=== PATIENT | female | born 1935 | race Caucasian/White ===

== ENCOUNTER 2017-06-16 09:30 | Emergency (ER) | payer MEDICARE ==
[~2017-06-16] VITALS: Ht 162.6 cm; Wt 81.7 kg
[~2017-06-16 09:30] MED LIST: ACEDIPPM; ACYC5TO15G TOP; ACYC800 PO; ALBU90OI INH; AMOCLA875 PO; ANAS1 PO; ASPI81EC; BISO5 PO; CALCIUM PO; CALGLU500; CHOL10002 PO; CLOP75 PO; DULERA 200 MCG/13 GM INH; Dyazide 37.5-21 EACH PO; Epipen0.3 MG/0.3 IM; FLUSAL2505 IH; HYDACE5 PO; HYDCHL12.5; LEVSOD50 PO; LISI5 PO; LORA.5; METO10 PO; METO25ER; OMEP20ER; PROBIOTIC PO; Pepcid20 MG PO; Prednisone20 MG PO; Prilosec Otc20 MG; ROSU5 PO; RXHYDACE PO; SIMV10 PO; STOOL SOFTENER PO; TRIHYD253B PO; UBID100 PO; [UNRECOGNIZED DRUG - OTHER]; [UNRECOGNIZED DRUG - OTHER]
[2017-06-16 10:32] LABS: BASOPHILS ABSOLUTE AUTO 0.04 K/mm3 (0.00-0.23); BASOPHILS PERCENT AUTO 1 % (0-2); EOSINOPHILS ABSOLUTE AUTO 0.21 K/mm3 (0.00-0.68); EOSINOPHILS PERCENT AUTO 3 % (0-6); Hematocrit 44.2 % (33.0-51.0); Hemoglobin 14.4 g/dL (11.5-16.0); IMMATURE GRAN ABSOLUTE AUTO 0.03 K/mm3 (0.00-0.10); IMMATURE GRAN PERCENT AUTO 0 % (0-1); LYMPHOCYTES ABSOLUTE AUTO 1.95 K/mm3 (0.84-5.20); LYMPHOCYTES PERCENT AUTO 26 % (21-46); MONOCYTES ABSOLUTE AUTO 0.58 K/mm3 (0.16-1.47); MONOCYTES PERCENT AUTO 8 % (4-13); Mean Corpuscular HGB 29.7 pg (26.0-34.0); Mean Corpuscular HGB Conc 32.6 g/dL (31.5-36.5); Mean Corpuscular Volume 91 fL (80-100); Mean Platelet Volume 10.1 fL (9.1-12.4); NEUTROPHILS ABSOLUTE AUTO 4.65 K/mm3 (1.96-9.15); NEUTROPHILS PERCENT AUTO 62 % (41-73); Platelet Count 235 K/mm3 (150-400); RDW Coefficient Variation 12.9 % (11.7-14.2); RDW Standard Deviation 42.4 fL (35.1-46.3); Red Blood Cell Count 4.85 M/mm3 (3.80-5.20); White Blood Cell Count 7.46 K/mm3 (4.00-11.30)
[2017-06-16 10:56] LABS: Anion Gap 10 mmol/L (6-16); Blood Urea Nitrogen 17 mg/dL (8-24); Bun/Creatinine Ratio 20.2 (12.0-20.0); CO2, Blood 23 mmol/L (21-32); Calcium, Blood 9.7 mg/dL (8.5-10.1); Chloride, Blood 107 mmol/L (98-108); Creatinine, Blood 0.84 mg/dL (0.40-1.00); Glomerular Filtration Rate >60 (60-); Glucose, Blood 99 mg/dL (70-99); Potassium, Blood 3.5 mmol/L (3.5-5.5); Sodium, Blood 140 mmol/L (136-145)
[2017-06-16 11:04] LABS: Cholesterol 180 mg/dL (50-200); Triglycerides 210 mg/dL (30-160)
[2017-08-22] MEDS ORDERED: KLOR-CON SPRIN10 MEQ PO (13:42)
[2017-08-22] MEDS ORDERED: ALBU90OI INH (13:44)
[2017-08-22] MEDS ORDERED: FLONASE ALLERG9.9 ML (13:47)
[2017-08-22] MEDS ORDERED: VITAMIN D31000 UNIT PO (13:48)
[2017-08-22] MEDS ORDERED: QVAR REDIHALE10.6 G1 (13:49)
[2017-08-22] MEDS ORDERED: VOLTAREN 1% (13:52)
[2017-08-22] MEDS ORDERED: CYCL10 PO (13:55)
[2017-09-19] MEDS ORDERED: Ventolin/Prove6.7 GM INH (16:38)
[2017-09-19] MEDS ORDERED: Bisoprolol Fumar5 MG PO (16:38)
== END 2017-06-16 11:55 | disposition home or self-care (01) ==
LOC: ER 09:30
PROVIDERS: Emergency Medicine
DX: G45.9 Transient cerebral ischemic attack, unspecified (principal); J32.9 Chronic sinusitis, unspecified; I10 Essential (primary) hypertension; E78.5 Hyperlipidemia, unspecified; Z91.018 Allergy to other foods; Z91.013 Allergy to seafood; Z88.8 Allergy status to other drugs, medicaments and biological substances; Z79.899 Other long term (current) drug therapy
CPT/HCPCS: 36415; 70450; 80048; 82465; 84478; 85025; 99284

== ENCOUNTER 2017-08-25 07:39 | Day surgery (SDC) | payer MEDICARE ==
[~2017-08-25] VITALS: Ht 165.1 cm; Wt 80.0 kg
[~2017-08-25 07:39] MED LIST changes: +CYCL10 PO; +FLONASE ALLERG9.9 ML; +KLOR-CON SPRIN10 MEQ PO; +QVAR REDIHALE10.6 G1; +VITAMIN D31000 UNIT PO; +VOLTAREN 1%
[2017-08-26] MEDS ORDERED: CEPH500 PO (10:36)
== END 2017-08-26 11:12 | disposition home or self-care (01) ==
LOC: MHTC 07:39 → PCU 10:43 → MHTC 08-26 11:12
PROC: 02HL3JZ Insertion of Pacemaker Lead into Left Ventricle, Percutaneous Approach (ICD-10-PCS; principal; 2017-08-25)
PROC: 02HK3JZ Insertion of Pacemaker Lead into Right Ventricle, Percutaneous Approach (ICD-10-PCS; principal; 2017-08-25)
PROC: 0JH606Z Insertion of Pacemaker, Dual Chamber into Chest Subcutaneous Tissue and Fascia, Open Approach (ICD-10-PCS; principal; 2017-08-25)
DX: I44.1 Atrioventricular block, second degree (principal); R00.1 Bradycardia, unspecified; I45.9 Conduction disorder, unspecified; I10 Essential (primary) hypertension; E78.5 Hyperlipidemia, unspecified; E03.9 Hypothyroidism, unspecified; Z87.891 Personal history of nicotine dependence; Z86.73 Personal history of transient ischemic attack (TIA), and cerebral infarction without residual deficits
CPT/HCPCS: 33208; 71045; 93005; 93010; 94760; 99152; 99153; C1785; C1898; J0690; J2250; J2270; J2405; J7030; J7040; J7042; Q9967

== ENCOUNTER 2018-03-28 04:53 | Inpatient (IN) | payer MEDICARE, SELFPAY ==
[~2018-03-28] VITALS: Ht 165.1 cm; Wt 83.1 kg
[~2018-03-28 04:53] MED LIST changes: +Bisoprolol Fumar5 MG PO; +CEPH500 PO; +LORA.5 PO; -Prilosec Otc20 MG; +Prilosec Otc20 MG PO; +Ventolin/Prove6.7 GM INH
[2018-03-28 05:54] LABS: BASOPHILS ABSOLUTE AUTO 0.06 K/mm3 (0.00-0.23); BASOPHILS PERCENT AUTO 1 % (0-2); EOSINOPHILS ABSOLUTE AUTO 0.16 K/mm3 (0.00-0.68); EOSINOPHILS PERCENT AUTO 2 % (0-6); Hematocrit 48.8 % (33.0-51.0); Hemoglobin 15.8 g/dL (11.5-16.0); IMMATURE GRAN ABSOLUTE AUTO 0.08 K/mm3 (0.00-0.10); IMMATURE GRAN PERCENT AUTO 1 % (0-1); LYMPHOCYTES ABSOLUTE AUTO 2.18 K/mm3 (0.84-5.20); LYMPHOCYTES PERCENT AUTO 22 % (21-46); MONOCYTES ABSOLUTE AUTO 0.75 K/mm3 (0.16-1.47); MONOCYTES PERCENT AUTO 8 % (4-13); Mean Corpuscular HGB 29.4 pg (26.0-34.0); Mean Corpuscular HGB Conc 32.4 g/dL (31.5-36.5); Mean Corpuscular Volume 91 fL (80-100); Mean Platelet Volume 9.8 fL (9.1-12.4); NEUTROPHILS ABSOLUTE AUTO 6.49 K/mm3 (1.96-9.15); NEUTROPHILS PERCENT AUTO 67 % (41-73); Platelet Count 193 K/mm3 (150-400); RDW Coefficient Variation 13.1 % (11.7-14.2); RDW Standard Deviation 43.5 fL (35.1-46.3); Red Blood Cell Count 5.37 M/mm3 (3.80-5.20); White Blood Cell Count 9.72 K/mm3 (4.00-11.30)
[2018-03-28 06:17] LABS: Albumin, Blood 3.9 g/dL (3.4-5.0); Albumin/Globulin Ratio 1.1 (0.8-1.8); Bilirubin, Total 0.6 mg/dL (0.1-1.0); Bun/Creatinine Ratio 18.1 (12.0-20.0); Calcium, Blood 10.3 mg/dL (8.5-10.1); Globulin, Blood 3.7 g/dL (2.2-4.0); Potassium, Blood 3.4 mmol/L (3.5-5.5); Total Protein, Blood 7.6 g/dL (6.4-8.2); Troponin I 0.206 ng/mL (0.000-0.040)
[2018-03-28] MEDS ORDERED: Advair Hfa 230-12 GM (06:48)
[2018-03-28] MEDS ORDERED: FLUT1DIS5 INH (16:17)
--- NOTE | 2018-03-28 17:44 | NUR ---
SHIFT SUMMARY 1525 PT RECEIVED FROM ER. ALERT AND ORIENTED X3 WITH SOME FORGETFULNESS. DENIES PAIN THROUGHOUT THE SHIFT. LUNG SOUNDS CLEAR THROUGHOUT, HEART TONES REGULAR SINUS TACHYCARDIA RATE 100s PER TELE. NON-PITTING EDEMA NOTED TO BLE. FAMILY AT BEDSIDE THROUGHOUT THE DAY. PER RT, PT's HOME RESCUE INHALER AND ADVAIR ARE , IN NEED OF A NEW PRESCRIPTION ON DISCHARGE. WILL CONTINUE TO MONITOR.
--- NOTE | 2018-03-29 05:22 | NUR ---
SHIFT SUMMARY: PATIENT WOKE APPROX 0400 FEELING NAUSEATED AND ACHY, OXYMIZER WAS NOT IN NARES. REPOSITIONED OXYMIZER AND GAVE ANTI NAUSEA MEDICATION, PATIENT SLEPT SHORTLY AFTER. PATIENT DOES NOT WANT ANY VISITORS OTHER THAN DAUGHTER, GRANDAUGHTER AND GRANDSON IN ROOM. SEE RN NOTE PLACED ON DOOR. VSS, CALL LIGHT WITHIN REACH, BED LOW AND LOCKED.
--- NOTE | 2018-03-29 18:09 | NUR ---
SHIFT SUMMARY PT RESTING IN BED THROUGHOUT THE DAY. VSS. ALERT AND ORIENTED X3. DENIES PAIN THROUGHOUT THE DAY. LUNG SOUNDS CLEAR, DYSPNEA WITH EXERTION. SATURATIONS LOW TO MID 90s ON OXYMIZER 5-7 L. PT AMBULATING WITH STANDBY ASSIST TO BATHROOM. FAMILY AT BEDSIDE THE MAJORITY OF THE DAY. WILL CONTINUE TO MONITOR.
--- NOTE | 2018-03-30 05:04 | NUR ---
SHIFT SUMMARY: PATIENT TITRATED DOWN TO 3L O2 WITH SATURATION AT 93 TO 95%. NO OTHER ISSUES NOTED, VSS, CALL LIGHT WITHIN REACH, BED LOW AND LOCKED WITH EXIT ALARM ON.
--- NOTE | 2018-03-30 18:12 | NUR ---
SHIFT SUMMARY PT RESTING IN BED THROUGHOUT THE DAY. VSS. ALERT AND ORIENTED X3. DENIES PAIN THIS AM, C/O SOME PAIN TO LEG WITH MOVEMENT, DENIES NEED FOR PAIN MEDS TODAY. LUNG SOUNDS CLEAR, NSR RATE 76 PER TELE. NON-PITTING EDEMA TO BLE. FAMILY AT BEDSIDE OFF AND ON TODAY. FAMILY HAD ASKED ABOUT USING XARELTO OR ELIQUIS INSTEAD OF COUMADIN D/T PT LIVING FAR OUT OF TOWN, DR. VANG NOTIFIED, COUMADIN TO CONTINUE AT THIS TIME. PT IS AGREEABLE TO TAKING COUMADIN AT THIS TIME. WILL CONTINUE TO MONITOR.
[2018-03-31 04:19] LABS: International Normalized Ratio 0.97
--- NOTE | 2018-03-31 06:20 | NUR ---
SHIFT SUMMARY- PT HAS REMAINED AOX4 THROUGHOUT SHIFT. VSS. PLEASANT AND COOPERATIVE WITH CARE. OXYGEN TITRATED DOWN TO 1L VIA NASAL CANNULA AND O2 SATS HAVE REMAINED >90% ON 1L WHILE AT REST, BUT REQUIRES SLIGHT INCREASE TO 2L WITH AMBULATION. PT DOES NOT DISPLAY EXTREME DYSPNEA ON EXERTION, BUT DOES HAVE SLIGHT DECREASE IN O2 SATS TO 88-89%. CONTINUES TO AMBULATE WITH STANDBY ASSIST WITHOUT DIFFICULTY. PT RESTED WELL THROUGHOUT MUCH OF THE NIGHT. NO OTHER CHANGES NOTED FROM INITIAL ASSESSMENT. WILL CONTINUE TO MONITOR AND REPORT TO ONCOMING RN. BED IN LOW POSITION, CALL LIGHT IN REACH.
[2018-03-31 07:19] LABS: Anion Gap 8 mmol/L (6-16); Blood Urea Nitrogen 18 mg/dL (8-24); Bun/Creatinine Ratio 20.1 (12.0-20.0); CO2, Blood 24 mmol/L (21-32); Calcium, Blood 9.7 mg/dL (8.5-10.1); Chloride, Blood 105 mmol/L (98-108); Glomerular Filtration Rate >60 (60-); Glucose, Blood 105 mg/dL (70-99); Potassium, Blood 4.2 mmol/L (3.5-5.5); Sodium, Blood 137 mmol/L (136-145)
--- NOTE | 2018-03-31 14:47 | NUR ---
PT AMBULATES AROUND PCU UNIT ONE TIME. TOLERATES WELL. SATS ON RETURN ARE 94% ON 2 LITERS. TURNED DOWN TO 1 LITER WHILE SHE IS SLEEPING. PT MAINTAINS SATS ABOVE 92% ON 1 LITER DURING REST. DAUGHTER AT BEDSIDE. [facility] ONTINUE TO MONITOR CLOSELY.
--- NOTE | 2018-03-31 17:42 | NUR ---
END OF SHIFT; PT UP TO BATHROOM WITH ONE PERSON ASSIST TODAY. SHE REMAINS ON 1 LITER O2 VIA NASAL CANNULA. PT WALKED WITH HER DAUGHTER AND THIS RN AROUND UNIT TODAY. TOLERATED WELL USED 2 LITERS O2 DURING WALK. RETURNED TO ROOM AND SATS ARE 94% ON 2 LITERS PT IS TURNED TO 1 LITER AFTER COMING BACK TO ROOM. SHE COMPLAINS OF WEAKNESS AND FEELS SLIGHTLY DIZZY WHEN WALKING. CT SCAN WITH CONTRAST DONE THIS AM. LUNGS ARE DIM IN THE LOWER LOBES AT THIS TIME. WILL CONTINUE TO MONITOR THIS PATIENT UNTIL REPORT AND HAND OFF TO NOC SHIFT RN.
--- NOTE | 2018-03-31 23:45 | NUR ---
LATE ENTRY -TRANSFER FROM PCU- PT ARRIVED FROM ROOM PCU2 AT 2044. PT ABLE TO TRANSFER FROM BED TO BED WITH A STANDBY ASSIST. REVIEWED PCU NURSE INITIAL SHIFT ASSESSMENT, NO ACUTE CHANGES NOTED AFTER PT ARRIVED TO MEDICAL FLOOR. VSS, WILL CONTINUE TO MONITOR.
[2018-04-01 05:21] LABS: International Normalized Ratio 1.06; Prothrombin Time Results 10.9 Sec (9.7-11.5)
--- NOTE | 2018-04-01 06:04 | NUR ---
[employer] GR[employer]ER SUMMARY NO ACUTE CHANGES THIS SHIFT. PT AAOX4 AND COOPERATIVE WITH CARE. PT TRANSFERED TO THE MED FLOOR FROM PCU AT 2044. PT STANDBY ASSIST WITH AMBULATION. LUNG SOUNDS CLEAR BUT DIM IN BASES, PT REMAINS ON 1L O2 VIA NC. BED ALARM ON DUE TO PT NO ALWAYS CALLING FOR ASSISTANCE. CAN BE UNSTEADY AT TIMES. VSS, WILL CONTINUE TO MONITOR.
--- NOTE | 2018-04-01 16:39 | NUR ---
SHIFT SUMMARY PT HAS REFUSED TO GET OUT OF BED TODAY ASIDE FROM GOING TO THE BATHROOM. WILL CONTINUE TO ENCOURAGE THE PT TO GET OUT OF BED AND UP INTO CHAIR. PT USED NO OXYGEN THE MAJORITY OF THE DAY. AT 1400 TO PT EXPEREINCED SLIGHT CONFUSED. O2 SATS WERE 88-90 AT THIS TIME. PT WAS PLACED ON 1L O2 VIA NC. PT IS NOW TITRATED BACK DOWN TO 0.5L. PT HAS BEEN IND IN ROOM GOING TO THE BATHROOM WHEN NEEDED. NO OTHER CHANGES IN ASSESSMENT. PT IS A POSSIBLE DISCHARGE FOR TOMORROW. DR. VANG WILL BE STARTING THE PT ON XARELTO [facility]. VSS. WILL CONTINUE TO MONITOR UNTIL TURNOVER IS COMPLETE.
--- NOTE | 2018-04-02 04:19 | NUR ---
SHIFT SUMMARY TITRATED PT OFF OF O2 THIS EVENING AT START OF SHIFT. O2 SATS THIS AM REMAINED STABLE AT 92% ON RA. PT DENIES SOB AND APPEARS TO BE IN NO RESPIRATORY DISTRESS. LUNG SOUNDS DIM BUT CLEAR. PT SLEPT WELL SLEEPING THROUGH MUCH OF THE NIGHT. REPORTED HIP PAIN W/ AMBULATION BUT OTHERWISE DENIED DISCOMFORT AND DENIED ANY NEED FOR PAIN MEDICATION. OTHERWISE NO ACUTE CHANGES. VSS. WILL CONTINUE TO MONITOR AND REPORT TO DAY RN.
[2018-04-02 05:42] LABS: International Normalized Ratio 1.44; Prothrombin Time Results 14.5 Sec (9.7-11.5)
[2018-04-02] MEDS ORDERED: ACET325 PO (12:50)
[2018-04-02] MEDS ORDERED: Potassium Chlo10 ME2 PO (12:51)
[2018-04-02] MEDS ORDERED: XARELTO15 MG PO (12:51)
--- NOTE | 2018-04-02 13:24 | NUR ---
DISCHARGE SUMMARY RAEANN LEFT WITH HER DAUGHTER VIA WC. PIV REMOVED, PAPERWORK REVIEWED, ALL XARELTO SAMPLES GIVEN TO HER (15MG CAPS TO BE TAKEN BID) AND PRESCRIPTION FAXED TO FOR 20MG CAPS TO BE TAKEN AFTER 15MG CAPS GONE. DIRECTIONS EXPLAINED THOROUGHLY TO PT AND HER DAUGHTER. PT HAS BEEN SBA TO BR, ENDORSES FEELING 'DOWN' DUE TO OTHER DAUGHTERS RECENT . WILL F/U WITH DR VANG ON FRIDAY AT 0900
== END 2018-04-02 13:27 | disposition home or self-care (01) | DRG 175 ==
LOC: DELPENDDIS → ER 04:53 → ERHOLD 04:54 → PCU 15:10 → MEDS 03-31 20:45 → ENPENDDIS 04-01 00:49 → MEDS 04-02 13:27
PROVIDERS: Emergency Medicine; Internal Medicine; ADMIT Internal Medicine
DX: I26.92 Saddle embolus of pulmonary artery without acute cor pulmonale (principal); J96.01 Acute respiratory failure with hypoxia; F32.9 Major depressive disorder, single episode, unspecified; I10 Essential (primary) hypertension; E78.5 Hyperlipidemia, unspecified; E03.9 Hypothyroidism, unspecified; K21.9 Gastro-esophageal reflux disease without esophagitis; F41.9 Anxiety disorder, unspecified; J45.909 Unspecified asthma, uncomplicated; Z66 Do not resuscitate; Z95.0 Presence of cardiac pacemaker; Z85.3 Personal history of malignant neoplasm of breast; Z92.3 Personal history of irradiation; Z87.891 Personal history of nicotine dependence; Z91.013 Allergy to seafood; Z88.7 Allergy status to serum and vaccine; Z88.8 Allergy status to other drugs, medicaments and biological substances; Z91.018 Allergy to other foods; Z79.02 Long term (current) use of antithrombotics/antiplatelets; Z79.51 Long term (current) use of inhaled steroids; Z79.899 Other long term (current) drug therapy; I69.998 Other sequelae following unspecified cerebrovascular disease; R20.8 Other disturbances of skin sensation
CPT/HCPCS: 36415; 71045; 71260; 74177; 80048; 80053; 82947; 84484; 85025; 85610; 93005; 93010; 93308; 93321; 93970; 94640; 94644; 94760; 99285-25; G0378; J1650; J2405; J7030; J7060; Q9967

== ENCOUNTER 2018-06-15 13:58 | Emergency (ER) | payer MEDICARE, SELFPAY ==
[~2018-06-15] VITALS: Ht 165.1 cm; Wt 81.7 kg
[~2018-06-15 13:58] MED LIST changes: +ACET325 PO; +Advair Hfa 230-12 GM; +FLUT1DIS5 INH; +Potassium Chlo10 ME2 PO; +XARELTO15 MG PO
[2018-06-15 14:33] LABS: BASOPHILS ABSOLUTE AUTO 0.05 K/mm3 (0.00-0.23); BASOPHILS PERCENT AUTO 1 % (0-2); EOSINOPHILS ABSOLUTE AUTO 0.15 K/mm3 (0.00-0.68); EOSINOPHILS PERCENT AUTO 2 % (0-6); Hematocrit 45.4 % (33.0-51.0); Hemoglobin 14.4 g/dL (11.5-16.0); IMMATURE GRAN ABSOLUTE AUTO 0.04 K/mm3 (0.00-0.10); IMMATURE GRAN PERCENT AUTO 1 % (0-1); LYMPHOCYTES ABSOLUTE AUTO 1.95 K/mm3 (0.84-5.20); LYMPHOCYTES PERCENT AUTO 28 % (21-46); MONOCYTES ABSOLUTE AUTO 0.51 K/mm3 (0.16-1.47); MONOCYTES PERCENT AUTO 7 % (4-13); Mean Corpuscular HGB 29.9 pg (26.0-34.0); Mean Corpuscular HGB Conc 31.7 g/dL (31.5-36.5); Mean Corpuscular Volume 94 fL (80-100); Mean Platelet Volume 9.9 fL (9.1-12.4); NEUTROPHILS ABSOLUTE AUTO 4.16 K/mm3 (1.96-9.15); NEUTROPHILS PERCENT AUTO 61 % (41-73); Platelet Count 268 K/mm3 (150-400); RDW Coefficient Variation 13.8 % (11.7-14.2); Red Blood Cell Count 4.82 M/mm3 (3.80-5.20); White Blood Cell Count 6.86 K/mm3 (4.00-11.30)
[2018-06-15 14:51] LABS: Albumin, Blood 3.9 g/dL (3.4-5.0); Albumin/Globulin Ratio 1.1 (0.8-1.8); Bilirubin, Total 0.3 mg/dL (0.1-1.0); Calcium, Blood 10.1 mg/dL (8.5-10.1); Creatinine, Blood 0.96 mg/dL (0.40-1.00); Globulin, Blood 3.4 g/dL (2.2-4.0); Potassium, Blood 4.1 mmol/L (3.5-5.5); Total Protein, Blood 7.3 g/dL (6.4-8.2)
[2018-06-15 15:05] LABS: International Normalized Ratio 0.97; Prothrombin Time Results 10.3 Sec (9.7-11.5)
[2018-06-15 16:39] LABS: Bilirubin, Urine Neg (Neg); Blood, Urine Neg (Neg); Glucose Qualitative, Urine Neg (Neg); Ketones, Urine Neg (Neg); Leukocyte Esterase, Urine Neg (Neg); Nitrite, Urine Neg (Neg); Protein, Urine Neg (Neg); Urobilinogen, Urine NORM (Normal)
[2018-06-15 17:02] LABS: Appearance, Urine Clear (Clear); Color, Urine Pale Yellow (P-Yellow)
== END 2018-06-15 17:29 | disposition home or self-care (01) ==
LOC: ER 13:58
PROVIDERS: Physician Assistant
DX: R07.9 Chest pain, unspecified (principal); R55 Syncope and collapse; I10 Essential (primary) hypertension; E78.5 Hyperlipidemia, unspecified; Z79.899 Other long term (current) drug therapy; Z79.02 Long term (current) use of antithrombotics/antiplatelets; Z88.0 Allergy status to penicillin; Z88.8 Allergy status to other drugs, medicaments and biological substances; Z88.6 Allergy status to analgesic agent; Z91.018 Allergy to other foods; Z91.048 Other nonmedicinal substance allergy status; Z91.013 Allergy to seafood; Z86.73 Personal history of transient ischemic attack (TIA), and cerebral infarction without residual deficits; Z86.718 Personal history of other venous thrombosis and embolism
CPT/HCPCS: 36415; 70450; 71046; 80053; 81003; 84484; 85025; 85379; 85610; 93005; 93010; 99285-25

== ENCOUNTER 2018-06-16 23:39 | Emergency (ER) | payer MEDICARE, SELFPAY ==
[~2018-06-16] VITALS: Ht 165.1 cm; Wt 79.4 kg
[2018-06-17 01:29] LABS: BASOPHILS ABSOLUTE AUTO 0.06 K/mm3 (0.00-0.23); BASOPHILS PERCENT AUTO 1 % (0-2); EOSINOPHILS ABSOLUTE AUTO 0.21 K/mm3 (0.00-0.68); EOSINOPHILS PERCENT AUTO 3 % (0-6); Hematocrit 45.1 % (33.0-51.0); Hemoglobin 14.5 g/dL (11.5-16.0); IMMATURE GRAN ABSOLUTE AUTO 0.05 K/mm3 (0.00-0.10); IMMATURE GRAN PERCENT AUTO 1 % (0-1); LYMPHOCYTES ABSOLUTE AUTO 2.89 K/mm3 (0.84-5.20); LYMPHOCYTES PERCENT AUTO 37 % (21-46); MONOCYTES ABSOLUTE AUTO 0.75 K/mm3 (0.16-1.47); MONOCYTES PERCENT AUTO 10 % (4-13); Mean Corpuscular HGB 30.3 pg (26.0-34.0); Mean Corpuscular HGB Conc 32.2 g/dL (31.5-36.5); Mean Corpuscular Volume 94 fL (80-100); NEUTROPHILS PERCENT AUTO 49 % (41-73); Platelet Count 245 K/mm3 (150-400); RDW Coefficient Variation 13.7 % (11.7-14.2); RDW Standard Deviation 47.8 fL (35.1-46.3); Red Blood Cell Count 4.79 M/mm3 (3.80-5.20); White Blood Cell Count 7.76 K/mm3 (4.00-11.30)
[2018-06-17 01:49] LABS: Calcium, Blood 10.2 mg/dL (8.5-10.1); Potassium, Blood 3.7 mmol/L (3.5-5.5)
== END 2018-06-17 03:02 | disposition home or self-care (01) ==
LOC: ER 23:39
PROVIDERS: Emergency Medicine
DX: R00.1 Bradycardia, unspecified (principal); R42 Dizziness and giddiness; Z88.8 Allergy status to other drugs, medicaments and biological substances; Z91.018 Allergy to other foods; Z91.030 Bee allergy status; Z91.013 Allergy to seafood; Z79.899 Other long term (current) drug therapy; I10 Essential (primary) hypertension; Z86.73 Personal history of transient ischemic attack (TIA), and cerebral infarction without residual deficits; E78.5 Hyperlipidemia, unspecified; Z87.891 Personal history of nicotine dependence
CPT/HCPCS: 36415; 80048; 85025; 93005; 93010; 99284-25

== ENCOUNTER 2018-10-14 00:50 | Observation (INO) | payer MEDICARE, SELFPAY ==
[~2018-10-14] VITALS: Ht 165.1 cm; Wt 79.8 kg
[2018-10-14 01:45] LABS: BASOPHILS ABSOLUTE AUTO 0.03 K/mm3 (0.00-0.23); BASOPHILS PERCENT AUTO 0 % (0-2); EOSINOPHILS ABSOLUTE AUTO 0.03 K/mm3 (0.00-0.68); EOSINOPHILS PERCENT AUTO 0 % (0-6); Hematocrit 43.1 % (33.0-51.0); IMMATURE GRAN ABSOLUTE AUTO 0.06 K/mm3 (0.00-0.10); IMMATURE GRAN PERCENT AUTO 1 % (0-1); LYMPHOCYTES ABSOLUTE AUTO 1.05 K/mm3 (0.84-5.20); LYMPHOCYTES PERCENT AUTO 11 % (21-46); MONOCYTES ABSOLUTE AUTO 0.55 K/mm3 (0.16-1.47); MONOCYTES PERCENT AUTO 6 % (4-13); Mean Corpuscular HGB Conc 32.5 g/dL (31.5-36.5); Mean Corpuscular Volume 92 fL (80-100); Mean Platelet Volume 10.1 fL (9.1-12.4); NEUTROPHILS ABSOLUTE AUTO 7.94 K/mm3 (1.96-9.15); NEUTROPHILS PERCENT AUTO 82 % (41-73); Platelet Count 228 K/mm3 (150-400); RDW Coefficient Variation 13.5 % (11.7-14.2); RDW Standard Deviation 46.1 fL (35.1-46.3); Red Blood Cell Count 4.67 M/mm3 (3.80-5.20); White Blood Cell Count 9.66 K/mm3 (4.00-11.30)
[2018-10-14 02:00] LABS: Magnesium, Blood 1.6 mg/dL (1.6-2.4)
[2018-10-14 02:08] LABS: Alanine Aminotransfer (ALT/SGP 28 U/L (12-78); Albumin, Blood 3.7 g/dL (3.4-5.0); Albumin/Globulin Ratio 1.2 (0.8-1.8); Alk Phos 47 U/L (50-136); Anion Gap 8 mmol/L (6-16); Aspartate Aminotrans (AST/SGOT 24 U/L (12-37); Bilirubin, Total 0.5 mg/dL (0.1-1.0); Blood Urea Nitrogen 20 mg/dL (8-24); Bun/Creatinine Ratio 17.7 (12.0-20.0); CO2, Blood 26 mmol/L (21-32); Calcium, Blood 9.8 mg/dL (8.5-10.1); Chloride, Blood 105 mmol/L (98-108); Creatinine, Blood 1.13 mg/dL (0.40-1.00); Glomerular Filtration Rate 49 (60-); Glucose, Blood 164 mg/dL (70-99); Potassium, Blood 3.1 mmol/L (3.5-5.5); Sodium, Blood 139 mmol/L (136-145); Total Protein, Blood 6.7 g/dL (6.4-8.2); Troponin I <0.015 ng/mL (0.000-0.040)
[2018-10-14 02:21] LABS: Source, Urine Clean Catch
[2018-10-14 02:24] LABS: Appearance, Urine Clear (Clear); Bilirubin, Urine Neg (Neg); Blood, Urine Neg (Neg); Color, Urine Yellow (P-Yellow); Glucose Qualitative, Urine Neg (Neg); Ketones, Urine 2+ (Neg); Leukocyte Esterase, Urine 2+ (Neg); Nitrite, Urine Pos (Neg); Protein, Urine Neg (Neg); Urobilinogen, Urine NORM (Normal)
[2018-10-14 02:31] LABS: Bacteria Many /hpf; Red Blood Cells, Urine 0-2 /hpf (0-2); Squamous Epithelial Cells Few /hpf (Few); White Blood Cells, Urine 25-50 /hpf (0-5)
[2018-10-14] MEDS ORDERED: WARF3 (03:22)
--- NOTE | 2018-10-14 05:23 | NUR ---
transfer report from Starr Flowers in ER on PT being admitted with Vertigo and UTI. 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 Await admission
--- NOTE | 2018-10-14 06:36 | NUR ---
83 YEAR OLD fEMALE ADMITTED WITH VERTIGO AND UTI. sHE SAYS SHE WANTS TO HAVE DNR STATUS DUE TO MULTIPLE MEDICAL PROBLEMS AND MEMORY DEFICITS. DTR LEIDY AT BEDSIDE, DTR STAYS WITH PT SINCE REYNA KHAN IN . 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 HAS MULTIPLE ALLERGIES AND MULTIPLE MEDICATIONS. DENIES RECENT FALLS. ABLE TO COMMUNICATE.CONTINUE TO ASSESS.
[2018-10-14 06:43] LABS: International Normalized Ratio 1.94; Prothrombin Time Results 19.4 Sec (9.7-11.5)
--- NOTE | 2018-10-14 18:47 | NUR ---
PATIENT ADMITTED FOR DIZZINESS. MECLIZINE AND VALIUM GIVEN TO TREAT WITH NO RELIEF. PT WORKED WITH PATIENT. UP WITH 1 ASSIST TO BSC. VOIDING USING BSC. PATIENT IS A/OX4 AND COOPERATIVE WITH CARE. SKIN INTACT. 20G TO L AC, D5 1/2 NS INFUSING AT 100ML/HR. TYLENOL GIVEN X1 FOR BEST. PATIENT REPORTS THIS EVENING THAT VERTIGO IS A LITTLE BETTER. ABLE TO TOLERATE LUNCH AND DINNER WITHOUT NAUSEA. K+ REPLACED ORALLY AND 20MEQ GIVEN IV. CALLS APPROPRIATELY FOR ASSISTANCE. VSS, ON RA.
[2018-10-15 05:29] LABS: International Normalized Ratio 2.08; Prothrombin Time Results 20.6 Sec (9.7-11.5)
--- NOTE | 2018-10-15 06:36 | NUR ---
SHIFT SUMMARY PATIENT SLEPT THROUGHOUT NIHT WITH NO ACUTE CHANGES. PATEINT COMPLAINING OF VERTIGO IN AM. MEDICATIONS GIVEN. PRINTED OUT INFORMATION AND SHOWED THE PATIENT THE JEANMARIE MANEUVER. PATIENT STATED THAT THE MANEUVER HELPED HER VERTIGO AND THAT SHE WOULD GIVE THE INFORMATION TO HER DAUGHTER SO THAT SHE MAY CONTINUE TO DO THE MANEUVER AT HOME. PATEINT UP TO [facility].
[2018-10-15] MEDS ORDERED: MOTION RELIEF25 MG PO (18:16)
[2018-10-15] MEDS ORDERED: DIAZ2 PO (18:16)
[2018-10-15] MEDS ORDERED: VENL75ER PO (18:17)
--- NOTE | 2018-10-15 18:38 | NUR ---
REVIEW D'C W/PATIENT AND DAUGHTER. AWARE TO CREDIT COLLECTIONS ANALYST 2 X RX AT [facility]. STS DOES NOT HAVE VALIUM AT HOME. TOLD TO CALL TOMORROW ABOUT RX FOR IT. REVIEW MEDS. DAUGHTER UNDERSTANDS MEDS TO TAKE AND NOT TAKE. AWARE NEEDS TO MAKE F/U APPT W/ OFFICE CLOSED NOW. ANSWER ALL QUESTIONS. IN W/C W/DERRICK FOLLOWER TO POV.
== END 2018-10-15 18:30 | disposition home or self-care (01) ==
LOC: ER 00:50 → MEDS 00:51 → ENPENDDIS 10-15 17:32 → MEDS 10-15 18:30
PROVIDERS: Emergency Medicine; Pharmacist; ADMIT Internal Medicine
DX: R42 Dizziness and giddiness (principal); R11.2 Nausea with vomiting, unspecified; E78.5 Hyperlipidemia, unspecified; K21.9 Gastro-esophageal reflux disease without esophagitis; E03.9 Hypothyroidism, unspecified; I26.99 Other pulmonary embolism without acute cor pulmonale; M70.61 Trochanteric bursitis, right hip; R82.90 Unspecified abnormal findings in urine; E87.6 Hypokalemia; G43.B0 Ophthalmoplegic migraine, not intractable; Z86.73 Personal history of transient ischemic attack (TIA), and cerebral infarction without residual deficits; Z79.82 Long term (current) use of aspirin; Z79.899 Other long term (current) drug therapy; Z88.8 Allergy status to other drugs, medicaments and biological substances; Z87.891 Personal history of nicotine dependence; Z85.3 Personal history of malignant neoplasm of breast
CPT/HCPCS: 36415; 70496; 80053; 81001; 83735; 84132; 84484; 85025; 85610; 87077; 87086; 87186; 93005; 93010; 96361; 96365-59; 96375; 96375-59; 97110; 97116; 97162; 97530; 99285-25; A9270; A9270-GY; G0378; J0696; J2405; J3480; J7030; Q9967

== ENCOUNTER 2019-01-03 19:39 | Emergency (ER) | payer MEDICARE, OTHER ==
[~2019-01-03] VITALS: Ht 165.1 cm; Wt 78.0 kg
[~2019-01-03 19:39] MED LIST changes: +DIAZ2 PO; +MOTION RELIEF25 MG PO; +VENL75ER PO; +WARF3
[2019-01-03 20:59] LABS: BASOPHILS ABSOLUTE AUTO 0.05 K/mm3 (0.00-0.23); BASOPHILS PERCENT AUTO 1 % (0-2); EOSINOPHILS ABSOLUTE AUTO 0.47 K/mm3 (0.00-0.68); EOSINOPHILS PERCENT AUTO 5 % (0-6); Hemoglobin 14.3 g/dL (11.5-16.0); IMMATURE GRAN ABSOLUTE AUTO 0.05 K/mm3 (0.00-0.10); IMMATURE GRAN PERCENT AUTO 1 % (0-1); LYMPHOCYTES ABSOLUTE AUTO 1.88 K/mm3 (0.84-5.20); LYMPHOCYTES PERCENT AUTO 21 % (21-46); MONOCYTES ABSOLUTE AUTO 0.77 K/mm3 (0.16-1.47); MONOCYTES PERCENT AUTO 9 % (4-13); Mean Corpuscular HGB 30.8 pg (26.0-34.0); Mean Corpuscular HGB Conc 31.8 g/dL (31.5-36.5); Mean Corpuscular Volume 97 fL (80-100); Mean Platelet Volume 9.9 fL (9.1-12.4); NEUTROPHILS ABSOLUTE AUTO 5.59 K/mm3 (1.96-9.15); NEUTROPHILS PERCENT AUTO 64 % (41-73); Platelet Count 268 K/mm3 (150-400); RDW Coefficient Variation 13.4 % (11.7-14.2); RDW Standard Deviation 48.1 fL (35.1-46.3); Red Blood Cell Count 4.65 M/mm3 (3.80-5.20); White Blood Cell Count 8.81 K/mm3 (4.00-11.30)
[2019-01-03 21:19] LABS: Alanine Aminotransfer (ALT/SGP 28 U/L (12-78); Albumin/Globulin Ratio 1.1 (0.8-1.8); Alk Phos 66 U/L (50-136); Anion Gap 8 mmol/L (6-16); Aspartate Aminotrans (AST/SGOT 23 U/L (12-37); Bilirubin, Total 0.3 mg/dL (0.1-1.0); Blood Urea Nitrogen 19 mg/dL (8-24); Bun/Creatinine Ratio 21.3 (12.0-20.0); CO2, Blood 23 mmol/L (21-32); Calcium, Blood 10.2 mg/dL (8.5-10.1); Chloride, Blood 112 mmol/L (98-108); Creatinine, Blood 0.89 mg/dL (0.40-1.00); Globulin, Blood 3.5 g/dL (2.2-4.0); Glomerular Filtration Rate >60 (60-); Glucose, Blood 153 mg/dL (70-99); Potassium, Blood 3.9 mmol/L (3.5-5.5); Sodium, Blood 143 mmol/L (136-145); Total Protein, Blood 7.5 g/dL (6.4-8.2)
[2019-01-03 22:29] LABS: Source, Urine Clean Catch
[2019-01-03 22:35] LABS: Bilirubin, Urine Neg (Neg); Blood, Urine 1+ (Neg); Glucose Qualitative, Urine Neg (Neg); Ketones, Urine Neg (Neg); Leukocyte Esterase, Urine 3+ (Neg); Nitrite, Urine Pos (Neg); Protein, Urine 1+ (Neg); Specific Gravity, Urine 1.025 (1.003-1.022); Urobilinogen, Urine NORM (Normal)
[2019-01-03 22:40] LABS: Appearance, Urine Clear (Clear); Color, Urine Yellow (P-Yellow)
[2019-01-03 22:42] LABS: Bacteria Many /hpf; Red Blood Cells, Urine 0-2 /hpf (0-2); Squamous Epithelial Cells Few /hpf (Few); White Blood Cells, Urine 50-100 /hpf (0-5)
== END 2019-01-04 01:49 | disposition home or self-care (01) ==
LOC: ER 19:39
PROVIDERS: Physician Assistant
DX: R42 Dizziness and giddiness (principal); R51 Headache; I10 Essential (primary) hypertension; Z86.73 Personal history of transient ischemic attack (TIA), and cerebral infarction without residual deficits; Z86.711 Personal history of pulmonary embolism; Z87.891 Personal history of nicotine dependence; Z79.899 Other long term (current) drug therapy; Z91.018 Allergy to other foods; Z91.030 Bee allergy status; Z88.7 Allergy status to serum and vaccine; Z91.013 Allergy to seafood; Z88.8 Allergy status to other drugs, medicaments and biological substances; Z79.01 Long term (current) use of anticoagulants
CPT/HCPCS: 36415; 80053; 81001; 85025; 87077; 87086; 87186; 93005; 93010; 96361; 96374; 99283-25; A9270-GY; J2405; J7030

== ENCOUNTER → 2019-02-09 | Outpatient (CLI) | payer MEDICARE, OTHER ==
[2019-02-10 06:29] LABS: Candida species (DNA Probe) Negative (NEGATIVE); G. vaginalis (DNA Probe) Negative (NEGATIVE); T. vaginalis (DNA Probe) Negative (NEGATIVE)
== END | disposition home or self-care (01) ==
LOC: LAB 15:00 → LAB SHORT 15:00
PROVIDERS: Internal Medicine
DX: N76.0 Acute vaginitis (principal)
CPT/HCPCS: 87480; 87510; 87660

== ENCOUNTER → 2019-03-25 | Outpatient (CLI) | payer MEDICARE, OTHER ==
[2019-03-25 09:49] LABS: Calcium, Urine 8.5 mg/dL (< 17.5)
== END | disposition home or self-care (01) ==
LOC: LAB SHORT 08:22 → LAB 08:22 → LAB FUT 03-15 12:10
PROVIDERS: Internal Medicine
DX: E83.52 Hypercalcemia (principal); E55.9 Vitamin D deficiency, unspecified
CPT/HCPCS: 81050; 82340

== ENCOUNTER 2019-04-25 14:39 | Emergency (ER) | payer MEDICARE, OTHER ==
[~2019-04-25] VITALS: Ht 165.1 cm; Wt 81.7 kg
[2019-04-25] MEDS ORDERED: POTA10T PO (14:47)
[2019-04-25] MEDS ORDERED: LEVSOD50 PO (14:47)
[2019-04-25] MEDS ORDERED: ZOCOR20 MG PO (14:47)
[2019-04-25] MEDS ORDERED: OMEPRAZOLE20 MG PO (14:47)
[2019-04-25] MEDS ORDERED: WARF4 (14:48)
[2019-04-25] MEDS ORDERED: ASPI81CH PO (14:48)
[2019-04-25] MEDS ORDERED: Vitamin D2000 UNIT PO (14:48)
[2019-04-25] MEDS ORDERED: HYDCHL25 PO (14:48)
[2019-04-25 15:29] LABS: Source, Urine Clean Catch
[2019-04-25 15:29] LABS: Influenza A Negative (NEGATIVE); Influenza B Negative (NEGATIVE)
[2019-04-25 15:42] LABS: Appearance, Urine Clear (Clear); Bilirubin, Urine Neg (Neg); Blood, Urine 2+ (Neg); Color, Urine Yellow (P-Yellow); Glucose Qualitative, Urine Neg (Neg); Ketones, Urine Neg (Neg); Leukocyte Esterase, Urine Neg (Neg); Nitrite, Urine Neg (Neg); Protein, Urine Neg (Neg); Urobilinogen, Urine NORM (Normal)
[2019-04-25 15:50] LABS: BASOPHILS ABSOLUTE AUTO 0.05 K/mm3 (0.00-0.23); BASOPHILS PERCENT AUTO 1 % (0-2); EOSINOPHILS ABSOLUTE AUTO 0.28 K/mm3 (0.00-0.68); EOSINOPHILS PERCENT AUTO 4 % (0-6); Hematocrit 46.7 % (33.0-51.0); Hemoglobin 14.9 g/dL (11.5-16.0); IMMATURE GRAN ABSOLUTE AUTO 0.04 K/mm3 (0.00-0.10); IMMATURE GRAN PERCENT AUTO 1 % (0-1); LYMPHOCYTES ABSOLUTE AUTO 1.73 K/mm3 (0.84-5.20); LYMPHOCYTES PERCENT AUTO 23 % (21-46); MONOCYTES ABSOLUTE AUTO 1.03 K/mm3 (0.16-1.47); MONOCYTES PERCENT AUTO 14 % (4-13); Mean Corpuscular HGB 29.9 pg (26.0-34.0); Mean Corpuscular HGB Conc 31.9 g/dL (31.5-36.5); Mean Corpuscular Volume 94 fL (80-100); Mean Platelet Volume 9.5 fL (9.1-12.4); NEUTROPHILS ABSOLUTE AUTO 4.27 K/mm3 (1.96-9.15); NEUTROPHILS PERCENT AUTO 58 % (41-73); Platelet Count 253 K/mm3 (150-400); RDW Coefficient Variation 13.2 % (11.7-14.2); RDW Standard Deviation 45.6 fL (35.1-46.3); Red Blood Cell Count 4.98 M/mm3 (3.80-5.20)
[2019-04-25 15:54] LABS: Bacteria Few /hpf; Squamous Epithelial Cells Few /hpf (Few); White Blood Cells, Urine 0-2 /hpf (0-5)
[2019-04-25 16:01] LABS: International Normalized Ratio 2.59; Prothrombin Time Results 26.3 Sec (9.7-11.5)
[2019-04-25 16:06] LABS: Alanine Aminotransfer (ALT/SGP 82 U/L (12-78); Albumin, Blood 3.8 g/dL (3.4-5.0); Albumin/Globulin Ratio 1.1 (0.8-1.8); Alk Phos 68 U/L (50-136); Anion Gap 5 mmol/L (6-16); Aspartate Aminotrans (AST/SGOT 53 U/L (12-37); Bilirubin, Total 0.3 mg/dL (0.1-1.0); Blood Urea Nitrogen 12 mg/dL (8-24); Bun/Creatinine Ratio 14.3 (12.0-20.0); CO2, Blood 25 mmol/L (21-32); Calcium, Blood 9.9 mg/dL (8.5-10.1); Chloride, Blood 113 mmol/L (98-108); Creatinine, Blood 0.84 mg/dL (0.40-1.00); Globulin, Blood 3.5 g/dL (2.2-4.0); Glomerular Filtration Rate >60 (60-); Glucose, Blood 97 mg/dL (70-99); Potassium, Blood 4.3 mmol/L (3.5-5.5); Sodium, Blood 143 mmol/L (136-145); Total Protein, Blood 7.3 g/dL (6.4-8.2)
[2019-04-25] MEDS ORDERED: BENZ100A PO (16:37)
[2019-04-27 06:08] LABS: HBSAG SCREEN Negative (Negative); HEP A AB, IGM Negative (Negative); HEP B CORE AB, IGM Negative (Negative); HEP C VIRUS AB <0.1 (0.0-0.9)
== END 2019-04-25 17:11 | disposition home or self-care (01) ==
LOC: ER 14:39
PROVIDERS: Physician Assistant
DX: J40 Bronchitis, not specified as acute or chronic (principal); R74.8 Abnormal levels of other serum enzymes; I10 Essential (primary) hypertension; E78.5 Hyperlipidemia, unspecified; Z88.8 Allergy status to other drugs, medicaments and biological substances; Z88.6 Allergy status to analgesic agent; Z91.038 Other insect allergy status; Z88.7 Allergy status to serum and vaccine; Z91.018 Allergy to other foods; Z91.013 Allergy to seafood; Z79.899 Other long term (current) drug therapy; Z79.82 Long term (current) use of aspirin; Z79.01 Long term (current) use of anticoagulants
CPT/HCPCS: 36415; 71046; 80053; 80074; 81001; 84484; 85025; 85610; 87804; 93005; 93010; 94640; 96374; 99284-25; J2930

== ENCOUNTER 2020-03-04 08:46 | Emergency (ER) | payer MEDICARE ==
[~2020-03-04] VITALS: Ht 165.1 cm; Wt 84.4 kg
[~2020-03-04 08:46] MED LIST changes: +ASPI81CH PO; +BENZ100A PO; +HYDCHL25 PO; +OMEPRAZOLE20 MG PO; +POTA10T PO; +Vitamin D2000 UNIT PO; +WARF4; +ZOCOR20 MG PO
[2020-03-04 09:34] LABS: BASOPHILS ABSOLUTE AUTO 0.05 K/mm3 (0.00-0.23); BASOPHILS PERCENT AUTO 1 % (0-2); EOSINOPHILS ABSOLUTE AUTO 0.33 K/mm3 (0.00-0.68); EOSINOPHILS PERCENT AUTO 6 % (0-6); Hematocrit 45.4 % (33.0-51.0); Hemoglobin 14.6 g/dL (11.5-16.0); IMMATURE GRAN ABSOLUTE AUTO 0.03 K/mm3 (0.00-0.10); IMMATURE GRAN PERCENT AUTO 1 % (0-1); LYMPHOCYTES PERCENT AUTO 38 % (21-46); MONOCYTES ABSOLUTE AUTO 0.51 K/mm3 (0.16-1.47); MONOCYTES PERCENT AUTO 9 % (4-13); Mean Corpuscular HGB 30.3 pg (26.0-34.0); Mean Corpuscular HGB Conc 32.2 g/dL (31.5-36.5); Mean Corpuscular Volume 94 fL (80-100); Mean Platelet Volume 10.1 fL (9.1-12.4); NEUTROPHILS PERCENT AUTO 47 % (41-73); Platelet Count 233 K/mm3 (150-400); RDW Coefficient Variation 12.8 % (11.7-14.2); RDW Standard Deviation 44.1 fL (35.1-46.3); Red Blood Cell Count 4.82 M/mm3 (3.80-5.20); White Blood Cell Count 6.02 K/mm3 (4.00-11.30)
[2020-03-04 09:35] LABS: Source, Urine Voided
[2020-03-04 09:40] LABS: Bilirubin, Urine Neg (Neg); Blood, Urine Neg (Neg); Glucose Qualitative, Urine Neg (Neg); Ketones, Urine Neg (Neg); Leukocyte Esterase, Urine 1+ (Neg); Nitrite, Urine Neg (Neg); Protein, Urine Neg (Neg); Urobilinogen, Urine NORM (Normal)
[2020-03-04 09:45] LABS: Appearance, Urine Clear (Clear); Color, Urine Pale Yellow (P-Yellow)
[2020-03-04 09:47] LABS: Bacteria Few /hpf; Red Blood Cells, Urine 0-2 /hpf (0-2); Squamous Epithelial Cells Few /hpf (Few); White Blood Cells, Urine 0-2 /hpf (0-5)
[2020-03-04 09:47] LABS: International Normalized Ratio 2.16; Prothrombin Time Results 22.1 Sec (9.7-11.5)
[2020-03-04 09:48] LABS: Alanine Aminotransfer (ALT/SGP 30 U/L (12-78); Albumin, Blood 3.8 g/dL (3.4-5.0); Albumin/Globulin Ratio 1.2 (0.8-1.8); Alk Phos 78 U/L (50-136); Anion Gap 5 mmol/L (6-16); Aspartate Aminotrans (AST/SGOT 25 U/L (12-37); Bilirubin, Total 0.6 mg/dL (0.1-1.0); Blood Urea Nitrogen 11 mg/dL (8-24); Bun/Creatinine Ratio 13.3 (12.0-20.0); CO2, Blood 28 mmol/L (21-32); Calcium, Blood 9.9 mg/dL (8.5-10.1); Chloride, Blood 111 mmol/L (98-108); Creatinine, Blood 0.83 mg/dL (0.40-1.00); Globulin, Blood 3.1 g/dL (2.2-4.0); Glomerular Filtration Rate >60 (60-); Glucose, Blood 101 mg/dL (70-99); Potassium, Blood 4.1 mmol/L (3.5-5.5); Sodium, Blood 144 mmol/L (136-145); Total Protein, Blood 6.9 g/dL (6.4-8.2); Troponin I <0.015 ng/mL (0.000-0.040)
== END 2020-03-04 11:18 | disposition home or self-care (01) ==
LOC: ER 08:46
PROVIDERS: Emergency Medicine
DX: M54.9 Dorsalgia, unspecified (principal); M25.512 Pain in left shoulder; F32.9 Major depressive disorder, single episode, unspecified; E03.9 Hypothyroidism, unspecified; Z87.891 Personal history of nicotine dependence; Z79.899 Other long term (current) drug therapy; Z79.01 Long term (current) use of anticoagulants; Z79.82 Long term (current) use of aspirin; Z88.1 Allergy status to other antibiotic agents; Z88.8 Allergy status to other drugs, medicaments and biological substances; Z91.018 Allergy to other foods; Z88.6 Allergy status to analgesic agent; Z88.7 Allergy status to serum and vaccine; Z88.4 Allergy status to anesthetic agent; Z91.013 Allergy to seafood; Z91.030 Bee allergy status; Z86.73 Personal history of transient ischemic attack (TIA), and cerebral infarction without residual deficits; K21.9 Gastro-esophageal reflux disease without esophagitis; Z95.0 Presence of cardiac pacemaker
CPT/HCPCS: 36415; 71046; 80053; 81001; 83880; 84484; 85025; 85610; 93005; 93010; 96360; 96361; 99285-25; J2405; J7030

== ENCOUNTER 2020-08-28 01:32 | Emergency (ER) | payer MEDICARE, SELFPAY ==
[~2020-08-28] VITALS: Ht 165.1 cm; Wt 81.7 kg
[2020-08-28] MEDS ORDERED: DIAZEPAM5 M2 PO (03:37)
[2020-08-28] MEDS ORDERED: FUROSEMIDE20 MG PO (03:37)
[2020-08-28 03:48] LABS: Source, Urine Clean Catch
[2020-08-28 03:50] LABS: Bilirubin, Urine Neg (Neg); Blood, Urine 3+ (Neg); Glucose Qualitative, Urine Neg (Neg); Ketones, Urine Neg (Neg); Leukocyte Esterase, Urine 1+ (Neg); Nitrite, Urine Neg (Neg); Protein, Urine 1+ (Neg); Specific Gravity, Urine 1.025 (1.003-1.022); Urobilinogen, Urine NORM (Normal)
[2020-08-28 03:53] LABS: Appearance, Urine Clear (Clear); Color, Urine Yellow (P-Yellow)
[2020-08-28 03:57] LABS: Bacteria Few /hpf; Hyaline Casts 0-2 /lpf (0-2); Squamous Epithelial Cells Few /hpf (Few); White Blood Cells, Urine 0-2 /hpf (0-5)
[2020-08-28 04:02] LABS: BASOPHILS ABSOLUTE AUTO 0.07 K/mm3 (0.00-0.23); BASOPHILS PERCENT AUTO 1 % (0-2); EOSINOPHILS PERCENT AUTO 2 % (0-6); Hematocrit 44.8 % (33.0-51.0); Hemoglobin 14.8 g/dL (11.5-16.0); IMMATURE GRAN ABSOLUTE AUTO 0.05 K/mm3 (0.00-0.10); IMMATURE GRAN PERCENT AUTO 0 % (0-1); LYMPHOCYTES PERCENT AUTO 18 % (21-46); MONOCYTES ABSOLUTE AUTO 1.01 K/mm3 (0.16-1.47); MONOCYTES PERCENT AUTO 9 % (4-13); Mean Corpuscular HGB 30.2 pg (26.0-34.0); Mean Corpuscular Volume 91 fL (80-100); Mean Platelet Volume 9.9 fL (9.1-12.4); NEUTROPHILS ABSOLUTE AUTO 7.93 K/mm3 (1.96-9.15); NEUTROPHILS PERCENT AUTO 70 % (41-73); Platelet Count 242 K/mm3 (150-400); RDW Coefficient Variation 12.5 % (11.7-14.2); RDW Standard Deviation 41.9 fL (35.1-46.3); White Blood Cell Count 11.26 K/mm3 (4.00-11.30)
[2020-08-28 04:24] LABS: Alanine Aminotransfer (ALT/SGP 31 U/L (12-78); Albumin, Blood 4.1 g/dL (3.4-5.0); Albumin/Globulin Ratio 1.2 (0.8-1.8); Alk Phos 79 U/L (50-136); Anion Gap 8 mmol/L (6-16); Aspartate Aminotrans (AST/SGOT 21 U/L (12-37); Bilirubin, Total 0.4 mg/dL (0.1-1.0); Blood Urea Nitrogen 12 mg/dL (8-24); Bun/Creatinine Ratio 13.5 (12.0-20.0); CO2, Blood 25 mmol/L (21-32); Calcium, Blood 9.7 mg/dL (8.5-10.1); Chloride, Blood 104 mmol/L (98-108); Creatinine, Blood 0.89 mg/dL (0.40-1.00); Globulin, Blood 3.3 g/dL (2.2-4.0); Glomerular Filtration Rate >60 (60-); Glucose, Blood 117 mg/dL (70-99); Potassium, Blood 3.6 mmol/L (3.5-5.5); Sodium, Blood 137 mmol/L (136-145); Total Protein, Blood 7.4 g/dL (6.4-8.2)
[2020-08-28] MEDS ORDERED: JANTOVEN1 M2 PO (05:15)
[2020-08-28] MEDS ORDERED: Bisoprolol Fumar5 MG PO (05:15)
[2020-08-28] MEDS ORDERED: IBUP400 PO (05:27)
[2020-08-28] MEDS ORDERED: ONDA4ODT MM (06:15)
[2020-08-28 07:28] LABS: SARS-Cov-2 (COVID-19) PCR, MMC NEGATIVE (NEGATIVE)
[2020-09-19] MEDS ORDERED: Bisoprolol Fumar5 MG PO (12:35)
[2020-09-19] MEDS ORDERED: QVAR REDIHALE10.6 G2 INH (12:35)
[2020-09-19] MEDS ORDERED: ALBU90OI INH (12:35)
[2020-09-19] MEDS ORDERED: DIAZ5 PO (12:36)
[2020-09-19] MEDS ORDERED: VITAMIN D325 MC3 PO (12:36)
[2020-09-19] MEDS ORDERED: FLONASE SENSIM5.9 M1 (12:37)
[2020-09-19] MEDS ORDERED: Fluocinonide15 GM (12:37)
[2020-09-19] MEDS ORDERED: FURO20 PO (12:37)
[2020-09-19] MEDS ORDERED: IBUP400 PO (12:38)
[2020-09-19] MEDS ORDERED: HYDCHL12.5 PO (12:38)
[2020-09-19] MEDS ORDERED: EUTHYROX50 MCG PO (12:38)
[2020-09-19] MEDS ORDERED: OMEP20ER PO (12:38)
[2020-09-19] MEDS ORDERED: ONDA4 PO (12:38)
[2020-09-19] MEDS ORDERED: HYDR1TAB94 PO (12:38)
[2020-09-19] MEDS ORDERED: TAMS.4ER PO (12:39)
[2020-09-19] MEDS ORDERED: Coumadin2 MG PO (12:39)
[2020-09-19] MEDS ORDERED: POTA10T PO (12:39)
[2020-09-19] MEDS ORDERED: SYMBICORT 160-4.6 GM (12:39)
[2020-09-19] MEDS ORDERED: WARF1 PO (12:39)
[2020-09-19] MEDS ORDERED: SIMV10 PO (12:39)
[2020-09-19] MEDS ORDERED: WARF3 PO (12:40)
== END 2020-08-28 06:26 | disposition home or self-care (01) ==
LOC: ER 01:32
PROVIDERS: Emergency Medicine
DX: N13.2 Hydronephrosis with renal and ureteral calculous obstruction (principal); E03.9 Hypothyroidism, unspecified; K21.9 Gastro-esophageal reflux disease without esophagitis; Z86.73 Personal history of transient ischemic attack (TIA), and cerebral infarction without residual deficits; Z88.8 Allergy status to other drugs, medicaments and biological substances; Z20.822 Contact with and (suspected) exposure to COVID-19; Z88.7 Allergy status to serum and vaccine; Z91.013 Allergy to seafood; Z91.030 Bee allergy status; Z88.4 Allergy status to anesthetic agent; Z91.018 Allergy to other foods; Z88.6 Allergy status to analgesic agent; Z79.82 Long term (current) use of aspirin; Z79.899 Other long term (current) drug therapy
CPT/HCPCS: 36415; 74176; 80053; 81001; 83605; 85025; 87086; 93005; 93010; 96374; 96375; 99284-25; A9270; J1885; J2405; J7030; U0004

== ENCOUNTER 2020-09-27 11:17 | Day surgery (SDC) | payer MEDICARE ==
[~2020-09-27] VITALS: Ht 165.1 cm; Wt 78.0 kg
[~2020-09-27 11:17] MED LIST changes: +Coumadin2 MG PO; +DIAZ5 PO; +DIAZEPAM5 M2 PO; +EUTHYROX50 MCG PO; +FLONASE SENSIM5.9 M1; +FURO20 PO; +FUROSEMIDE20 MG PO; +Fluocinonide15 GM; +HYDCHL12.5 PO; +HYDR1TAB94 PO; +IBUP400 PO; +JANTOVEN1 M2 PO; +OMEP20ER PO; +ONDA4 PO; +ONDA4ODT MM; +QVAR REDIHALE10.6 G2 INH; +SYMBICORT 160-4.6 GM; +TAMS.4ER PO; +VITAMIN D325 MC3 PO; +WARF1 PO; +WARF3 PO
== END 2020-09-27 14:15 | disposition home or self-care (01) ==
LOC: ORSCSDS 11:17
PROVIDERS: Internal Medicine Gastroenterology
PROC: 0DBM8ZX Excision of Descending Colon, Via Natural or Artificial Opening Endoscopic, Diagnostic (ICD-10-PCS; principal; 2020-09-27 13:00)
DX: K62.5 Hemorrhage of anus and rectum (principal); Z80.0 Family history of malignant neoplasm of digestive organs; D12.4 Benign neoplasm of descending colon; Z87.891 Personal history of nicotine dependence; K57.30 Diverticulosis of large intestine without perforation or abscess without bleeding; Z95.0 Presence of cardiac pacemaker; Z79.01 Long term (current) use of anticoagulants; Z79.899 Other long term (current) drug therapy
CPT/HCPCS: 88305; J2704; J7120

== ENCOUNTER → 2021-07-12 | Outpatient (CLI) | payer MEDICARE | END | disposition home or self-care (01) | LOC: LAB 16:00 → LAB SHORT 16:00 | DX: R32 Unspecified urinary incontinence (principal) | CPT/HCPCS: 87086 ==

== ENCOUNTER → 2022-02-20 | Outpatient (CLI) | payer MEDICARE | LOC: LAB 09:53 → LAB SHORT 09:53 | DX: Z51.81 Encounter for therapeutic drug level monitoring (principal); I48.91 Unspecified atrial fibrillation | CPT/HCPCS: 36416; 85610 ==

== ENCOUNTER 2022-02-26 11:03 | Emergency (ER) | payer MEDICARE ==
[~2022-02-26] VITALS: Ht 165.1 cm; Wt 77.1 kg
== END 2022-02-26 15:32 | disposition home or self-care (01) ==
LOC: ER 11:03
DX: S09.90XA Unspecified injury of head, initial encounter (principal); I95.1 Orthostatic hypotension; E78.5 Hyperlipidemia, unspecified; K21.9 Gastro-esophageal reflux disease without esophagitis; E03.9 Hypothyroidism, unspecified; W18.30XA Fall on same level, unspecified, initial encounter; Z79.890 Hormone replacement therapy; Z87.891 Personal history of nicotine dependence; Z88.8 Allergy status to other drugs, medicaments and biological substances; Z91.030 Bee allergy status; Z79.899 Other long term (current) drug therapy; Z86.73 Personal history of transient ischemic attack (TIA), and cerebral infarction without residual deficits
CPT/HCPCS: 70450; 71046; 72125; J3475; J7030

== ENCOUNTER → 2022-06-05 | Outpatient (CLI) | payer MEDICARE | END | disposition home or self-care (01) | LOC: LAB SHORT 12:00 → LAB 12:00 | DX: J02.9 Acute pharyngitis, unspecified (principal); R30.0 Dysuria | CPT/HCPCS: 87070; 87077; 87081; 87086; 87186; 87205 ==

== ENCOUNTER → 2022-06-17 | Outpatient (CLI) | payer MEDICARE | LOC: LAB SHORT 11:06 → LAB 11:06 | DX: R30.0 Dysuria (principal) | CPT/HCPCS: 87086 ==

== ENCOUNTER → 2022-10-03 | Outpatient (CLI) | payer MEDICARE | END | disposition home or self-care (01) | LOC: PLD 12:39 → LAB SHORT 12:39 | DX: C44.311 Basal cell carcinoma of skin of nose (principal) | CPT/HCPCS: 88305 ==

== ENCOUNTER → 2022-12-20 | Outpatient (CLI) | payer MEDICARE ==
[2022-12-20 12:23] LABS: Creatinine Urine 63.9 mg/dL (27.00-270.00); Microalbumin, Urine Quant. 5.71 mg/L (0.000-20.000); Protein, Urine Quantitative 10.5 mg/dL (0.0-11.9)
== END | disposition home or self-care (01) ==
LOC: LAB SHORT 10:06 → LAB 10:06 → LAB FUT 12-11 10:50
PROVIDERS: Internal Medicine Nephrology
DX: N18.30 Chronic kidney disease, stage 3 unspecified (principal); D63.1 Anemia in chronic kidney disease; N25.81 Secondary hyperparathyroidism of renal origin; E55.9 Vitamin D deficiency, unspecified; E78.00 Pure hypercholesterolemia, unspecified; D51.8 Other vitamin B12 deficiency anemias; D52.8 Other folate deficiency anemias; D50.9 Iron deficiency anemia, unspecified; R76.9 Abnormal immunological finding in serum, unspecified; R94.5 Abnormal results of liver function studies; R94.6 Abnormal results of thyroid function studies
CPT/HCPCS: 81050; 82043; 82570; 84156

== ENCOUNTER 2023-01-20 08:01 | Day surgery (SDC) | payer MEDICARE ==
[~2023-01-20] VITALS: Ht 15.2 cm; Wt 76.0 kg
[2023-01-20] VITALS (11 sets, daily range): BP systolic 134–160; BP diastolic 66–99
[~2023-01-20 08:01] MED LIST changes: +PACERONE100 M1 PO
[2023-01-20] MEDS ORDERED: REPATHA SU140 MG/1 M SC ×2 (09:03→09:05)
[2023-01-20] MEDS ORDERED: Isosorbide Mono30 MG PO (09:06)
[2023-01-20] MEDS ORDERED: IMIQUIMOD1 EACH TOP (09:10)
[2023-01-20 09:38] LABS: International Normalized Ratio 1.24; Prothrombin Time Results 12.9 Sec (9.7-11.5)
--- NOTE | 2023-01-20 11:28 | NUR ---
ASSUMED CARE OF PT. REPORT FROM LYNETTE BOSWELL. PT A&Ox4.
[2023-01-20] MEDS ORDERED: Aspir 8181 MG PO (12:30)
[2023-01-20] MEDS ORDERED: PLAVIX75 MG PO (12:31)
--- NOTE | 2023-01-20 12:45 | NUR ---
2CC REMOVED FROM TR BAND. SITE SOFT AND NON-TENDER PER PT. NO BLEEDING NOTED.
--- NOTE | 2023-01-20 13:49 | NUR ---
DAUGHTER AT THE BEDSIDE. UPDATED ON EVENTS OF PROCEDURE.
--- NOTE | 2023-01-20 13:50 | NUR ---
1330 TR BAND IS FLAT, NO BLEEDING NOTED. PATIENT ASSISTED UP TO THE RESTROOM. PATIENT IS OFF THE MONITOR AND BACK TO THE BAD AND WARMER IN PLACE, COLD IN ROOM. NO PAIN, NO BLEEDING NOTED.
--- NOTE | 2023-01-20 14:22 | NUR ---
PT AND PTs DAUGHTER GIVEN DC INSTRUCTIONS AND VERBALIZED UNDERSTANDING. IV OUT. PT CHANGED. CLOTH DOT PLACED BY ZULEYKA BOSWELL. SLING AND ARM BOARD APPLIED. NO BLEEDING NOTED AT SITE. SITE SOFT AND NON-TENDER PER ZULEYKA BOSWELL. [facility] AND [facility] CAR. DAUGHTER TO DRIVE PT HOME.
== END 2023-01-20 14:00 | disposition home or self-care (01) ==
LOC: MHTC 08:01
PROVIDERS: Internal Medicine Interventional Cardiology
DX: I25.10 Atherosclerotic heart disease of native coronary artery without angina pectoris (principal); I48.0 Paroxysmal atrial fibrillation; I10 Essential (primary) hypertension; E78.5 Hyperlipidemia, unspecified; E11.9 Type 2 diabetes mellitus without complications; E03.9 Hypothyroidism, unspecified; Z88.7 Allergy status to serum and vaccine; Z88.1 Allergy status to other antibiotic agents; Z88.8 Allergy status to other drugs, medicaments and biological substances; Z79.899 Other long term (current) drug therapy
CPT/HCPCS: 76937; 85610; 93454; 99152; 99153; A9270; C1725; C1769; C1874; C1887; C1894; C9600; C9601; J1644; J2250; J3246; J7030; J7050; Q9967

== ENCOUNTER 2023-01-28 10:36 | Emergency (ER) | payer MEDICARE ==
[~2023-01-28] VITALS: Ht 165.1 cm; Wt 75.8 kg
[~2023-01-28 10:36] MED LIST changes: +Aspir 8181 MG PO; +IMIQUIMOD1 EACH TOP; +Isosorbide Mono30 MG PO; +PLAVIX75 MG PO; +REPATHA SU140 MG/1 M SC
[2023-01-28 11:15] LABS: BASOPHILS ABSOLUTE AUTO 0.05 K/mm3 (0.00-0.23); BASOPHILS PERCENT AUTO 1 % (0-2); EOSINOPHILS ABSOLUTE AUTO 0.37 K/mm3 (0.00-0.68); EOSINOPHILS PERCENT AUTO 5 % (0-6); Hematocrit 42.3 % (33.0-51.0); Hemoglobin 13.7 g/dL (11.5-16.0); IMMATURE GRAN ABSOLUTE AUTO 0.04 K/mm3 (0.00-0.10); IMMATURE GRAN PERCENT AUTO 1 % (0-1); LYMPHOCYTES ABSOLUTE AUTO 2.43 K/mm3 (0.84-5.20); LYMPHOCYTES PERCENT AUTO 30 % (21-46); MONOCYTES ABSOLUTE AUTO 0.86 K/mm3 (0.16-1.47); MONOCYTES PERCENT AUTO 11 % (4-13); Mean Corpuscular HGB 30.6 pg (26.0-34.0); Mean Corpuscular HGB Conc 32.4 g/dL (31.5-36.5); Mean Corpuscular Volume 95 fL (80-100); Mean Platelet Volume 9.9 fL (9.1-12.4); NEUTROPHILS ABSOLUTE AUTO 4.32 K/mm3 (1.96-9.15); NEUTROPHILS PERCENT AUTO 54 % (41-73); Platelet Count 277 K/mm3 (150-400); RDW Coefficient Variation 13.2 % (11.7-14.2); RDW Standard Deviation 45.5 fL (35.1-46.3); Red Blood Cell Count 4.47 M/mm3 (3.80-5.20); White Blood Cell Count 8.07 K/mm3 (4.00-11.30)
[2023-01-28 11:42] LABS: Albumin, Blood 3.9 g/dL (3.4-5.0); Albumin/Globulin Ratio 1.2 (0.8-1.8); Bilirubin, Total 0.3 mg/dL (0.1-1.0); Bun/Creatinine Ratio 16.7 (12.0-20.0); Calcium, Blood 9.9 mg/dL (8.5-10.1); Creatinine, Blood 1.08 mg/dL (0.40-1.00); Globulin, Blood 3.2 g/dL (2.2-4.0); Potassium, Blood 3.9 mmol/L (3.5-5.5); Total Protein, Blood 7.1 g/dL (6.4-8.2)
[2023-01-28 12:15] LABS: International Normalized Ratio 1.76; Prothrombin Time Results 17.9 Sec (9.7-11.5)
[2023-01-28 14:30] VITALS: BP 125/95
== END 2023-01-28 14:38 | disposition home or self-care (01) ==
LOC: ER 10:36
PROVIDERS: Emergency Medicine
DX: R07.9 Chest pain, unspecified (principal); I25.10 Atherosclerotic heart disease of native coronary artery without angina pectoris; K21.9 Gastro-esophageal reflux disease without esophagitis; J45.998 Other asthma; E03.9 Hypothyroidism, unspecified; F32.A Depression, unspecified; Z95.5 Presence of coronary angioplasty implant and graft; Z95.0 Presence of cardiac pacemaker; Z88.1 Allergy status to other antibiotic agents; Z91.030 Bee allergy status; Z88.5 Allergy status to narcotic agent; Z91.013 Allergy to seafood; Z88.7 Allergy status to serum and vaccine; Z88.8 Allergy status to other drugs, medicaments and biological substances; Z91.018 Allergy to other foods; Z79.899 Other long term (current) drug therapy; Z79.01 Long term (current) use of anticoagulants; Z79.82 Long term (current) use of aspirin; Z87.891 Personal history of nicotine dependence
CPT/HCPCS: 71045; 80053; 84484; 85025; 85610; 93005; 93010; 96374; 99285-25; A9270

== ENCOUNTER 2023-07-30 06:36 | Emergency (ER) | payer MEDICARE ==
[~2023-07-30] VITALS: Ht 154.9 cm; Wt 77.1 kg
[2023-07-30 07:30] LABS: Calcium, Ionized (POC) 1.27 mmol/L (1.10-1.46); Chloride (POC) 109 mmol/L (98-108); Glucose (ISTAT POC) 99 mg/dL (70-99); Hemoglobin (POC) 13.9 g/dL (12.0-16.0); Potassium (POC) 4.1 mmol/L (3.5-5.5); Sodium (POC) 143 mmol/L (135-148); Total CO2 (POC) 23 mmol/L (21-32)
[2023-07-30] MEDS ORDERED: LEVSOD100 PO (07:32)
[2023-07-30] MEDS ORDERED: PROTONIX4010 PO (07:35)
[2023-07-30 08:00] VITALS: BP 145/74
[2023-07-30 08:05] LABS: International Normalized Ratio 2.01; Prothrombin Time Results 20.4 Sec (9.7-11.5)
== END 2023-07-30 09:29 | disposition home or self-care (01) ==
LOC: ER 06:36
PROVIDERS: Emergency Medicine
DX: I10 Essential (primary) hypertension (principal); E78.5 Hyperlipidemia, unspecified; J45.909 Unspecified asthma, uncomplicated; K21.9 Gastro-esophageal reflux disease without esophagitis; F32.A Depression, unspecified; E03.9 Hypothyroidism, unspecified; Z87.891 Personal history of nicotine dependence; Z79.02 Long term (current) use of antithrombotics/antiplatelets; Z79.51 Long term (current) use of inhaled steroids; Z79.01 Long term (current) use of anticoagulants; Z79.890 Hormone replacement therapy; Z79.899 Other long term (current) drug therapy
CPT/HCPCS: 80047; 85014; 85610; 85730; 99283

== ENCOUNTER 2024-03-08 08:04 | Emergency (ER) | payer MEDICARE ==
[~2024-03-08] VITALS: Ht 165.1 cm; Wt 73.5 kg
[~2024-03-08 08:04] MED LIST changes: +LEVSOD100 PO; +PROTONIX4010 PO
[2024-03-08] MEDS ORDERED: SERT100 PO (08:46)
[2024-03-08] MEDS ORDERED: EZET10 PO (08:48)
[2024-03-08] MEDS ORDERED: LEVSOD112 PO (08:48)
[2024-03-08 09:16] LABS: BASOPHILS ABSOLUTE AUTO 0.04 K/mm3 (0.00-0.23); BASOPHILS PERCENT AUTO 1 % (0-2); EOSINOPHILS ABSOLUTE AUTO 0.17 K/mm3 (0.00-0.68); EOSINOPHILS PERCENT AUTO 2 % (0-6); Hemoglobin 12.4 g/dL (11.5-16.0); IMMATURE GRAN ABSOLUTE AUTO 0.06 K/mm3 (0.00-0.10); IMMATURE GRAN PERCENT AUTO 1 % (0-1); LYMPHOCYTES ABSOLUTE AUTO 1.66 K/mm3 (0.84-5.20); LYMPHOCYTES PERCENT AUTO 20 % (21-46); MONOCYTES ABSOLUTE AUTO 0.81 K/mm3 (0.16-1.47); MONOCYTES PERCENT AUTO 10 % (4-13); Mean Corpuscular HGB 30.7 pg (26.0-34.0); Mean Corpuscular HGB Conc 31.8 g/dL (31.5-36.5); Mean Corpuscular Volume 97 fL (80-100); Mean Platelet Volume 9.6 fL (9.1-12.4); NEUTROPHILS ABSOLUTE AUTO 5.56 K/mm3 (1.96-9.15); NEUTROPHILS PERCENT AUTO 67 % (41-73); Platelet Count 222 K/mm3 (150-400); RDW Coefficient Variation 13.6 % (11.7-14.2); RDW Standard Deviation 48.5 fL (35.1-46.3); Red Blood Cell Count 4.04 M/mm3 (3.80-5.20)
[2024-03-08 09:31] LABS: International Normalized Ratio 1.62; Prothrombin Time Results 16.7 Sec (9.7-11.5)
[2024-03-08 09:37] LABS: Albumin, Blood 3.3 g/dL (3.4-5.0); Bilirubin, Total 0.5 mg/dL (0.1-1.0); Bun/Creatinine Ratio 16.4 (12.0-20.0); Calcium, Blood 9.9 mg/dL (8.5-10.1); Creatinine, Blood 0.92 mg/dL (0.40-1.00); Globulin, Blood 3.2 g/dL (2.2-4.0); Total Protein, Blood 6.5 g/dL (6.4-8.2)
[2024-03-08] MEDS ORDERED: Tetracaine HCl/Pf 0.5% Opth Soln 4 ml RIGHTEYE ONE (10:40)
[2024-03-08] MEDS ORDERED: Fluorescein Sod 1MG Opth Strips RIGHTEYE ONE (10:50)
[2024-03-08 13:54] VITALS: BP 152/72
[2024-03-08] MEDS ORDERED: ERYT.5TO RIGHTEYE (14:05)
[2024-03-08] MEDS ORDERED: AMOX-CLAV 875-1 EAC1 PO (14:05)
== END 2024-03-08 14:22 | disposition home or self-care (01) ==
LOC: ER 08:04
PROVIDERS: Physician Assistant
DX: S02.31XA Fracture of orbital floor, right side, initial encounter for closed fracture (principal); H11.31 Conjunctival hemorrhage, right eye; S05.01XA Injury of conjunctiva and corneal abrasion without foreign body, right eye, initial encounter; S60.221A Contusion of right hand, initial encounter; M25.511 Pain in right shoulder; M25.551 Pain in right hip; W18.30XA Fall on same level, unspecified, initial encounter; K21.9 Gastro-esophageal reflux disease without esophagitis; E78.5 Hyperlipidemia, unspecified; E03.9 Hypothyroidism, unspecified; J45.909 Unspecified asthma, uncomplicated; Z88.1 Allergy status to other antibiotic agents; Z88.8 Allergy status to other drugs, medicaments and biological substances; Z91.030 Bee allergy status; Z88.5 Allergy status to narcotic agent; Z91.013 Allergy to seafood; Z88.7 Allergy status to serum and vaccine; Z91.018 Allergy to other foods; Z79.01 Long term (current) use of anticoagulants; Z79.899 Other long term (current) drug therapy; Z79.890 Hormone replacement therapy; Z87.891 Personal history of nicotine dependence
CPT/HCPCS: 70450; 73030; 73130; 73502; 80053; 85025; 85610; 85730; 93005; 93010; 99284-25; A9270

== ENCOUNTER → 2024-04-23 | Outpatient (CLI) | payer MEDICARE ==
[~2024-04-23] MED LIST changes: +AMOX-CLAV 875-1 EAC1 PO; +ERYT.5TO RIGHTEYE; +EZET10 PO; +LEVSOD112 PO; +SERT100 PO
== END ==
LOC: LAB SHORT 09:17 → LAB 09:17
DX: R82.81 Pyuria (principal)
CPT/HCPCS: 87086

== ENCOUNTER 2024-05-02 02:54 | Emergency (ER) | payer MEDICARE ==
[~2024-05-02] VITALS: Ht 165.1 cm; Wt 74.8 kg
[2024-05-02] MEDS ORDERED: Ondansetron HCl 2 MG / ML 2ML Vial IV ONE (03:25)
[2024-05-02 03:35] LABS: BASOPHILS ABSOLUTE AUTO 0.04 K/mm3 (0.00-0.23); BASOPHILS PERCENT AUTO 0 % (0-2); EOSINOPHILS ABSOLUTE AUTO 0.15 K/mm3 (0.00-0.68); EOSINOPHILS PERCENT AUTO 2 % (0-6); Hematocrit 42.4 % (33.0-51.0); Hemoglobin 14.2 g/dL (11.5-16.0); IMMATURE GRAN ABSOLUTE AUTO 0.05 K/mm3 (0.00-0.10); IMMATURE GRAN PERCENT AUTO 1 % (0-1); LYMPHOCYTES ABSOLUTE AUTO 1.52 K/mm3 (0.84-5.20); LYMPHOCYTES PERCENT AUTO 17 % (21-46); MONOCYTES ABSOLUTE AUTO 0.66 K/mm3 (0.16-1.47); MONOCYTES PERCENT AUTO 7 % (4-13); Mean Corpuscular HGB 30.8 pg (26.0-34.0); Mean Corpuscular HGB Conc 33.5 g/dL (31.5-36.5); Mean Corpuscular Volume 92 fL (80-100); Mean Platelet Volume 9.6 fL (9.1-12.4); NEUTROPHILS ABSOLUTE AUTO 6.53 K/mm3 (1.96-9.15); NEUTROPHILS PERCENT AUTO 73 % (41-73); Platelet Count 253 K/mm3 (150-400); RDW Coefficient Variation 13.9 % (11.7-14.2); RDW Standard Deviation 47.2 fL (35.1-46.3); Red Blood Cell Count 4.61 M/mm3 (3.80-5.20); White Blood Cell Count 8.95 K/mm3 (4.00-11.30)
[2024-05-02 03:49] LABS: International Normalized Ratio 1.25; Prothrombin Time Results 13.2 Sec (9.7-11.5)
[2024-05-02 03:52] LABS: Albumin, Blood 3.7 g/dL (3.4-5.0); Albumin/Globulin Ratio 1.2 (0.8-1.8); Bilirubin, Total 0.4 mg/dL (0.1-1.0); Bun/Creatinine Ratio 20.1 (12.0-20.0); Calcium, Blood 9.6 mg/dL (8.5-10.1); Globulin, Blood 3.2 g/dL (2.2-4.0); Potassium, Blood 3.3 mmol/L (3.5-5.5); Total Protein, Blood 6.9 g/dL (6.4-8.2)
[2024-05-02] MEDS ORDERED: RX Prepack 2 Tabs Ondansetron ODT 4MG UD ONE (04:40)
[2024-05-02] MEDS ORDERED: Acetaminophen 500 MG Tab PO ONE (04:50)
[2024-05-02 04:59] VITALS: BP 185/91
== END 2024-05-02 05:08 | disposition home or self-care (01) ==
LOC: ER 02:54
PROVIDERS: Emergency Medicine
DX: R51.9 Headache, unspecified (principal); R11.0 Nausea; J45.909 Unspecified asthma, uncomplicated; E78.5 Hyperlipidemia, unspecified; Z79.01 Long term (current) use of anticoagulants; Z79.1 Long term (current) use of non-steroidal anti-inflammatories (NSAID); Z79.2 Long term (current) use of antibiotics; Z79.61 Long term (current) use of immunomodulator; Z79.899 Other long term (current) drug therapy; Z88.1 Allergy status to other antibiotic agents; Z88.8 Allergy status to other drugs, medicaments and biological substances; Z91.018 Allergy to other foods; Z91.030 Bee allergy status; Z91.013 Allergy to seafood; Z87.891 Personal history of nicotine dependence
CPT/HCPCS: 70450; 80053; 84484; 85025; 85610; 85730; 93005; 93010; 96374; 99284-25; A9270; J2405

== ENCOUNTER → 2024-05-10 | Outpatient (CLI) | payer MEDICARE ==
[2024-05-10 19:32] LABS: International Normalized Ratio 1.52; Prothrombin Time Results 15.8 Sec (9.7-11.5)
== END ==
LOC: LAB SHORT 18:00 → LAB 18:00
PROVIDERS: Internal Medicine
DX: Z86.711 Personal history of pulmonary embolism (principal); Z79.02 Long term (current) use of antithrombotics/antiplatelets
CPT/HCPCS: 85610

== ENCOUNTER → 2024-08-26 | Outpatient (CLI) | payer MEDICARE | LOC: LAB SHORT 09:33 → LAB 09:33 | DX: R82.90 Unspecified abnormal findings in urine (principal) | CPT/HCPCS: 87077; 87086; 87186 ==